=== PATIENT | male | born 1995 | race Two or more races ===

== ENCOUNTER 2019-07-14 22:59 | Emergency (ER) | payer MEDICAID ==
[~2019-07-14] VITALS: Ht 165.1 cm; Wt 92.6 kg
[2019-07-14 23:21] VITALS: BP 131/77
== END 2019-07-15 00:34 | disposition home or self-care (01) ==
LOC: ER 23:03
DX: L30.4 Erythema intertrigo (principal); B37.9 Candidiasis, unspecified

== ENCOUNTER 2019-07-16 19:21 | Emergency (ER) | payer MEDICAID ==
[~2019-07-16] VITALS: Ht 165.1 cm; Wt 92.5 kg
[2019-07-16 20:41] VITALS: BP 123/79
== END 2019-07-16 22:30 | disposition left against medical advice (07) ==
LOC: ER 19:21
DX: R21 Rash and other nonspecific skin eruption (principal); Z53.21 Procedure and treatment not carried out due to patient leaving prior to being seen by health care provider

== ENCOUNTER 2019-07-17 06:49 | Emergency (ER) | payer MEDICAID ==
[~2019-07-17] VITALS: Ht 165.1 cm; Wt 91.6 kg
[2019-07-17 06:56] VITALS: BP 134/71
== END 2019-07-17 08:24 | disposition home or self-care (01) ==
LOC: ER 06:49
DX: R21 Rash and other nonspecific skin eruption (principal)